=== PATIENT | male | born 1995 | race Hispanic/Latino ===

== ENCOUNTER 2019-05-19 09:24 | Emergency (ER) | payer SELFPAY ==
[2019-05-19] MEDS ORDERED: LIDOCAINE 1% MPF 5 ML VIAL ONE (10:42)
--- NOTE | 2019-05-19 10:53 | ER ---
Nurse's Notes [facility] Name: Aiden Hughes Age: 24 yrs Sex: Male : 1995 Arrival Date: 05/19/2019 Time: 09:29 Bed 26 Private MD: Diagnosis: Cutaneous abscess of abdominal wall Presentation: 05/19 09:51 Presenting complaint: Patient states: was having umbilical pain X 4 days, noticed a iw raised area inside belly button that has been draining pus. Transition of care: patient was not received from another setting of care. Onset of symptoms was May 16, 2019. Risk Assessment: Do you want to hurt yourself or someone else? Patient reports no desire to harm self or others. Initial Sepsis Screen: Does the patient meet any 2 criteria? No. Patient's initial sepsis screen is negative. Does the patient have a suspected source of infection? No. Patient's initial sepsis screen is negative. Care prior to arrival: None. 09:51 Method Of Arrival: Ambulatory iw 09:51 Acuity: GABRIELLA 4 iw 09:55 Acuity: GABRIELLA 3 iw Historical: - Allergies: 09:54 No Known Allergies; iw - Home Meds: 09:54 None [Active]; iw - PMHx: 09:54 None; iw - PSHx: 09:54 None; iw - Immunization history:: Adult Immunizations not up to date. - Social history:: Smoking status: Patient/guardian denies using tobacco. - Ebola Screening: : Patient negative for fever greater than or equal to 101.5 degrees Fahrenheit, and additional compatible Ebola Virus Disease symptoms Patient denies exposure to infectious person Patient denies travel to an Ebola-affected area in the 21 days before illness onset No symptoms or risks identified at this time. Screenin:20 Abuse screen: Denies threats or abuse. Nutritional screening: No deficits noted. em Tuberculosis screening: No symptoms or risk factors identified. Fall Risk None identified. Assessment: 10:20 General: Appears in no apparent distress. comfortable, Behavior is calm, cooperative, em Denies fever. Pain: Complains of pain in umbilical area Pain currently is 4 out of 10 on a pain scale. Neuro: Level of Consciousness is awake, alert, obeys commands, Oriented to person, place, time, situation, Appropriate for age. Cardiovascular: Capillary refill < 3 seconds Patient's skin is warm and dry. Respiratory: Airway is patent Respiratory effort is even, unlabored, Respiratory pattern is regular, symmetrical. GI: Abdomen is flat, Patient currently denies diarrhea, nausea, vomiting. Derm: Skin is intact, is healthy with good turgor, Skin is pink, warm \T\ dry. Wound noted umbilical area Wound is draining pus for about 3-4 days. Musculoskeletal: Capillary refill < 3 seconds, Range of motion: intact in all extremities. Vital Signs: 09:54 BP 124 / 86; Pulse 57; Resp 16 S; Temp 98.3; Pulse Ox 100% on R/A; Weight 72.57 kg; iw Height 5 ft. 7 in. (170.18 cm); Pain 0/10; 09:54 Body Mass Index 25.06 (72.57 kg, 170.18 cm) iw ED Course: 09:29 Patient arrived in ED. mr 09:30 Phi Lucero FNP-C [facility]. la1 09:30 Barrie Yeh MD is Attending Physician. la1 09:53 Triage completed. iw 09:54 Arm band placed on. iw 09:55 Chapis Mock, CATIA is Primary Nurse. iw 10:20 Patient has correct armband on for positive identification. Bed in low position. Call em light in reach. Adult w/ patient. Pulse ox on. NIBP on. 10:24 US Abdomen Limited In Process Unspecified. EDMS 11:15 No provider procedures requiring assistance completed. Patient did not have IV access em during this emergency room visit. Administered Medications: 10:47 Drug: Lidocaine (1 %) 5 mg {Note: administered by MARIA ELENA Yip.} Route: Infiltration; Site: em affected area; 10:55 Follow up: Response: No adverse reaction; Pain is decreased em Outcome: 10:51 Discharge ordered by . la1 11:15 Patient left the ED. iw 11:15 Discharged to home ambulatory, with family. em 11:15 Condition: good 11:15 Discharge instructions given to patient, family, Instructed on discharge instructions, follow up and referral plans. medication usage, wound care, Demonstrated understanding of instructions, follow-up care, medications, wound care, Prescriptions given X 1. Signatures: Dispatcher [employer] [facility] Liya Foster mr BneitezReilly, MAINTENANCE TEAM LEADER MAINTENANCE TEAM LEADERChapis Hyde, RN RN iw Phi Lucero, EXPEDITER SERVICE ORDER-C EXPEDITER SERVICE ORDER-Cla1
--- NOTE | 2019-05-19 10:53 | EDPHYS ---
Physician Documentation [facility] Name: Aiden Hughes Age: 24 yrs Sex: Male : 1995 Arrival Date: 05/19/2019 Time: 09:29 Bed 26 Private MD: ED Physician Barrie Yeh HPI: 05/19 10:00 This 24 yrs old Male presents to ER via Ambulatory with complaints of Hernia. la1 10:00 This 24 yrs old Male presents to ER via Ambulatory with complaints of la1 abdominal pain, ubilical p. 10:00 The patient presents with abdominal pain in the periumbilical area. Onset: The la1 symptoms/episode began/occurred 4 day(s) ago. The symptoms do not radiate. Associated signs and symptoms: Pertinent negatives: nausea, vomiting, and diarrhea, nausea and vomiting, blood in stools, constipation, diarrhea, dysuria, fever, headache, hematuria, nausea. The symptoms are described as sharp. Modifying factors: The symptoms are alleviated by nothing, the symptoms are aggravated by nothing. Severity of pain: At its worst the pain was mild. The patient has not experienced similar symptoms in the past. Pt reports that he has had what looks like an abscess in his umbilical area for the last four days. Historical: - Allergies: 09:54 No Known Allergies; iw - Home Meds: 09:54 None [Active]; iw - PMHx: 09:54 None; iw - PSHx: 09:54 None; iw - Immunization history:: Adult Immunizations not up to date. - Social history:: Smoking status: Patient/guardian denies using tobacco. - Ebola Screening: : Patient negative for fever greater than or equal to 101.5 degrees Fahrenheit, and additional compatible Ebola Virus Disease symptoms Patient denies exposure to infectious person Patient denies travel to an Ebola-affected area in the 21 days before illness onset No symptoms or risks identified at this time. ROS: 10:02 Constitutional: Negative for fever, chills, and weight loss, Eyes: Negative for injury, la1 pain, redness, and discharge, ENT: Negative for injury, pain, and discharge, Neck: Negative for injury, pain, and swelling, Cardiovascular: Negative for chest pain, palpitations, and edema, Respiratory: Negative for shortness of breath, cough, wheezing, and pleuritic chest pain. 10:02 Back: Negative for injury and pain, : Negative for injury, bleeding, discharge, and swelling, MS/Extremity: Negative for injury and deformity, Neuro: Negative for headache, weakness, numbness, tingling, and seizure. 10:02 Abdomen/GI: Positive for abdominal pain. Exam: 10:02 Constitutional: This is a well developed, well nourished patient who is awake, alert, la1 and in no acute distress. Head/Face: Normocephalic, atraumatic. Eyes: Pupils equal round and reactive to light, extra-ocular motions intact.Periorbital areas with no swelling, redness, or edema. ENT: Mucous membranes moist. Neck: . No Meningismus. Chest/axilla: Normal chest wall appearance and motion. Nontender with no deformity. No lesions are appreciated. Cardiovascular: Regular rate and rhythm with a normal S1 and S2. No gallops, murmurs, or rubs. Normal PMI, no JVD. No pulse deficits. Respiratory: Lungs have equal breath sounds bilaterally, clear to auscultation No rales, rhonchi or wheezes noted. No increased work of breathing, no retractions or nasal flaring. Back: No spinal tenderness. No costovertebral tenderness. Full range of motion. MS/ Extremity: Pulses equal, no cyanosis. Neurovascular intact. Full, normal range of motion. 10:02 Abdomen/GI: Inspection: apparent abscess in umbilicus, Bowel sounds: normal, Palpation: abdomen is soft and non-tender, in all quadrants, Indicators: McBurney's point is not tender, Garcia's sign is negative, Rovsing's sign is negative, Obturator sign is negative, Psoas sign is negative. Vital Signs: 09:54 BP 124 / 86; Pulse 57; Resp 16 S; Temp 98.3; Pulse Ox 100% on R/A; Weight 72.57 kg; iw Height 5 ft. 7 in. (170.18 cm); Pain 0/10; 09:54 Body Mass Index 25.06 (72.57 kg, 170.18 cm) iw Procedures: 10:50 I \T\ D: Incision and drainage was performed for an abscess of the umbilical area Prepped la1 with Betadine, Anesthetized with 1 ml's 1% Lidocaine. Incised with 18g needle. Drained small amount purulent fluid. bloody fluid. the patient tolerated the procedure well. MDM: 09:47 Patient medically screened. la1 10:51 Data reviewed: vital signs, nurses notes, radiologic studies, I have discussed the la1 patient's presentation/case with the attending Emergency Department Physician; and as a result, I will discharge patient. Data interpreted: Pulse oximetry: on room air is 100 %. Interpretation: normal. Counseling: I had a detailed discussion with the patient and/or guardian regarding: the historical points, exam findings, and any diagnostic results supporting the discharge/admit diagnosis, radiology results, the need for outpatient follow up, a family practitioner, to return to the emergency department if symptoms worsen or persist or if there are any questions or concerns that arise at home. Special discussion: Based on the patient's Hx, exam, and Dx evaluation, there is no indication for emergent surgery or inpatient Tx. It is understood by the patient/guardian that if the Sx's persist or worsen they need to return immediately for re-evaluation. I discussed in detail with the patient the higher chance of wound infection based on his presenting history. 05/19 09:59 Order name: Abdomen Limited; Complete Time: 11:09 la1 Administered Medications: 10:47 Drug: Lidocaine (1 %) 5 mg {Note: administered by MARIA ELENA Yip.} Route: Infiltration; Site: em affected area; 10:55 Follow up: Response: No adverse reaction; Pain is decreased em Disposition: 11:31 Co-signature as Attending Physician, Barrie Yeh MD I agree with the assessment and kdr plan of care. Disposition: 05/19/19 10:51 Discharged to Home. Impression: Cutaneous abscess of abdominal wall. - Condition is Stable. - Discharge Instructions: Skin Abscess, Incision and Drainage, Skin Abscess, [id number], Incision and Drainage, Care After. - Prescriptions for Bactrim DS 800- 160 mg Oral Tablet - take 1 tablet by ORAL route every 12 hours for 10 days; 20 tablet. - Work release form, Medication Reconciliation Form, Thank You Letter, Antibiotic Education form. - Follow up: Private Physician; When: 2 - 3 days; Reason: Recheck today's complaints, Re-evaluation by your physician. - Problem is new. - Symptoms have improved. Signatures: Dispatcher [employer] EDMS Barrie Yeh MD MD kdr Munoz, Edgar, LAVATORY ATTENDANT LAVATORY ATTENDANT em Chapis Mock, RN RN iw Phi Lcuero, COMMERCIAL HELICOPTER PILOT-C COMMERCIAL HELICOPTER PILOT-Cla1 Corrections: (The following items were deleted from the chart) 11:15 10:51 05/19/2019 10:51 Discharged to Home. Impression: Cutaneous abscess of abdominal iw wall. Condition is Stable. Forms are Medication Reconciliation Form, Thank You Letter, Antibiotic Education, Prescription Opioid Use. Follow up: Private Physician; When: 2 - 3 days; Reason: Recheck today's complaints, Re-evaluation by your physician. Problem is new. Symptoms have improved. la1
--- NOTE | 2019-05-19 11:01 | RAD REPORT ---
EXAM DESCRIPTION: US - Abdomen Exam Limited - 05/19/2019 10:23 am CLINICAL HISTORY: Abdominal mass COMPARISON: None. FINDINGS: Patient has a palpable area within the periumbilical region superficially. Ultrasound demonstrates a 12 millimeter fluid collection consistent with abscess IMPRESSION: 12 millimeter periumbilical abscess
[2019-05-19 11:34] VITALS: BP 124/86; TEMP 98.3; O2SAT 100
== END 2019-05-19 11:15 | disposition home or self-care (01) ==
LOC: ER 09:24
PROC: 0H97XZZ Drainage of Abdomen Skin, External Approach (ICD-10-PCS; principal; 2019-05-19)
DX: L02.211 Cutaneous abscess of abdominal wall (principal)
CPT/HCPCS: 76705; 99284

== ENCOUNTER 2019-08-11 09:58 | Emergency (ER) | payer SELFPAY ==
--- NOTE | 2019-08-11 10:55 | ER ---
Nurse's Notes [facility] Name: Aiden Hughes Age: 24 yrs Sex: Male : 1995 Arrival Date: 08/11/2019 Time: 10:03 Bed 19 Private MD: Diagnosis: Headache;Acute pharyngitis Presentation: 08/10 10:09 Chief complaint: Patient states: headache x 10 days. Coronavirus screen: Patient denies ss fever greater than 100.4F, cough, shortness of breath, or difficulty breathing. Proceed with normal triage process. Ebola Screen: Patient denies exposure to infectious person. Patient denies travel to an Ebola-affected area in the 21 days before illness onset. Initial Sepsis Screen: Does the patient meet any 2 criteria? No. Patient's initial sepsis screen is negative. Does the patient have a suspected source of infection? No. Patient's initial sepsis screen is negative. Risk Assessment: Do you want to hurt yourself or someone else? Patient reports no desire to harm self or others. 10:09 Method Of Arrival: Ambulatory ss 10:09 Acuity: GABRIELLA 4 ss 10:10 Onset of symptoms was August 08, 2019. ae4 Triage Assessment: 10:10 Headache History: The patient has had previous headaches and this one is similar to ae4 previous episodes. General: Appears in no apparent distress. Behavior is calm, cooperative. Pain: Pain currently is 6 out of 10 on a pain scale. Pain began gradually, 2-3 days ago. Also complains of Nasal congestion. EENT: Reports nasal congestion nasal discharge. Neuro: Level of Consciousness is awake, alert, obeys commands, Oriented to person, place, time, situation, Appropriate for age. Cardiovascular: Patient's skin is warm and dry. Respiratory: Airway is patent Denies cough, shortness of breath. GI: No signs and/or symptoms were reported involving the gastrointestinal system. : No signs and/or symptoms were reported regarding the genitourinary system. Derm: Skin is normal. Musculoskeletal: No signs and/or symptoms reported regarding the musculoskeletal system. Historical: - Allergies: 10:10 No Known Allergies; ss - Home Meds: 10:10 None [Active]; ss - PMHx: 10:10 None; ss - PSHx: 10:10 None; ss - Immunization history:: Adult Immunizations up to date. - Social history:: Smoking status: Patient denies any tobacco usage or history of. Screenin:07 Abuse screen: Denies threats or abuse. Denies injuries from another. Nutritional ae4 screening: No deficits noted. Tuberculosis screening: No symptoms or risk factors identified. Fall Risk None identified. Assessment: 10:10 Reassessment: See full triage assessment. ae4 10:10 Reassessment: No changes from previously documented assessment. Patient and/or family ae4 updated on plan of care and expected duration. Pain level reassessed. Vital Signs: 10:09 BP 117 / 86; Pulse 55; Resp 14; Temp 98.7(TE); Pulse Ox 98% on R/A; Weight 72.57 kg; ss Height 5 ft. 6 in. (167.64 cm); Pain 5/10; 11:07 Pulse 63; ae4 10:09 Body Mass Index 25.82 (72.57 kg, 167.64 cm) ED Course: 10:03 Patient arrived in ED. am2 10:10 Triage completed. ss 10:10 Arm band placed on left wrist. ss 10:10 Bed in low position. Call light in reach. Side rails up X 1. Pulse ox on. ae4 10:14 Danielle Cunningham [facility]NP-C [facility]. snw 10:14 Barrie Yeh MD is Attending Physician. snw 10:16 Abdifatah Shannon, CATIA is Primary Nurse. ae4 11:15 No provider procedures requiring assistance completed. Patient did not have IV access ae4 during this emergency room visit. Administered Medications: 11:02 Drug: ZyrTEC - Cetirizine 10 mg Route: PO; ae4 11:06 Follow up: Response: Medication administered at discharge. ae4 11:03 Drug: Zithromax 500 mg Route: PO; ae4 11:06 Follow up: Response: Medication administered at discharge. ae4 Outcome: 10:54 Discharge ordered by . snw 11:10 Patient left the ED. ae4 11:15 Discharged to home ambulatory. ae4 11:15 Condition: stable 11:15 Discharge instructions given to patient, Instructed on discharge instructions, follow up and referral plans. medication usage, Demonstrated understanding of instructions, Prescriptions given X 2. Signatures: Danielle Cunningham FNP-C SUPERVISOR BENZENE REFINING-Csnw Jennyfer Whitmore, RN RN ss Julianne Vásquez am2 Abdifatah Shannon, RN RN ae4
--- NOTE | 2019-08-11 10:55 | EDPHYS ---
Physician Documentation [facility] Name: Aiden Hughes Age: 24 yrs Sex: Male : 1995 Arrival Date: 08/11/2019 Time: 10:03 Bed 19 Private MD: ED Physician Barrie Yeh HPI: 08/10 11:03 This 24 yrs old Male presents to ER via Ambulatory with complaints of Headache.snw 11:03 The patient complains of pain to the forehead, right mandaen and left mandaen. The snw patient describes the headache as a pressure. Onset: The symptoms/episode began/occurred gradually, 10 day(s) ago, and became persistent. Severity of symptoms: At its worst the pain was mild, moderate, in the emergency department the pain is unchanged. Headache History: The patient has had previous headaches and this one is similar to previous episodes. The symptoms are alleviated by nothing. The patient has experienced a previous episode. The patient has not recently seen a physician. Historical: - Allergies: 10:10 No Known Allergies; ss - Home Meds: 10:10 None [Active]; ss - PMHx: 10:10 None; ss - PSHx: 10:10 None; ss - Immunization history:: Adult Immunizations up to date. - Social history:: Smoking status: Patient denies any tobacco usage or history of. ROS: 11:01 Constitutional: Negative for fever, chills, and weight loss, Eyes: Negative for injury, snw pain, redness, and discharge, ENT: Negative for injury, pain, and discharge, Neck: Negative for injury, pain, and swelling, Cardiovascular: Negative for chest pain, palpitations, and edema, Respiratory: Negative for shortness of breath, cough, wheezing, and pleuritic chest pain, Abdomen/GI: Negative for abdominal pain, nausea, vomiting, diarrhea, and constipation, Back: Negative for injury and pain, : Negative for injury, bleeding, discharge, and swelling, MS/Extremity: Negative for injury and deformity, Skin: Negative for injury, rash, and discoloration. 11:01 Neuro: Positive for headache, of the forehead, right mandaen and left mandaen. Exam: 11:01 Constitutional: This is a well developed, well nourished patient who is awake, alert, snw and in no acute distress. Head/Face: Normocephalic, atraumatic. Eyes: Pupils equal round and reactive to light, extra-ocular motions intact. Lids and lashes normal. Conjunctiva and sclera are non-icteric and not injected. Cornea within normal limits. Periorbital areas with no swelling, redness, or edema. ENT: Nares patent. No nasal discharge, no septal abnormalities noted. Tympanic membrane erythematous to left and normal to right and external auditory canals are clear. Oropharynx with redness, no swelling, or masses, exudates, or evidence of obstruction, uvula midline. Mucous membranes moist. Neck: Trachea midline, no thyromegaly or masses palpated, and no cervical lymphadenopathy. Supple, full range of motion without nuchal rigidity, or vertebral point tenderness. No Meningismus. Chest/axilla: Normal chest wall appearance and motion. Nontender with no deformity. No lesions are appreciated. Cardiovascular: Regular rate and rhythm with a normal S1 and S2. No gallops, murmurs, or rubs. Normal PMI, no JVD. No pulse deficits. Respiratory: Lungs have equal breath sounds bilaterally, clear to auscultation and percussion. No rales, rhonchi or wheezes noted. No increased work of breathing, no retractions or nasal flaring. Abdomen/GI: Soft, non-tender, with normal bowel sounds. No distension or tympany. No guarding or rebound. No evidence of tenderness throughout. Back: No spinal tenderness. No costovertebral tenderness. Full range of motion. Skin: Warm, dry with normal turgor. Normal color with no rashes, no lesions, and no evidence of cellulitis. MS/ Extremity: Pulses equal, no cyanosis. Neurovascular intact. Full, normal range of motion. Neuro: Awake and alert, GCS 15, oriented to person, place, time, and situation. Cranial nerves II-XII grossly intact. Motor strength 5/5 in all extremities. Sensory grossly intact. Cerebellar exam normal. Normal gait. Psych: Awake, alert, with orientation to person, place and time. Behavior, mood, and affect are within normal limits. Vital Signs: 10:09 BP 117 / 86; Pulse 55; Resp 14; Temp 98.7(TE); Pulse Ox 98% on R/A; Weight 72.57 kg; ss Height 5 ft. 6 in. (167.64 cm); Pain 5/10; 11:07 Pulse 63; ae4 10:09 Body Mass Index 25.82 (72.57 kg, 167.64 cm) ss MDM: 10:14 Patient medically screened. snw 10:55 Data reviewed: vital signs, nurses notes. Data interpreted: Pulse oximetry: on room air snw is 98 %. Interpretation: normal. Counseling: I had a detailed discussion with the patient and/or guardian regarding: the historical points, exam findings, and any diagnostic results supporting the discharge/admit diagnosis, the presence of at least one elevated blood pressure reading (>120/80) during this emergency department visit, the need for outpatient follow up, to return to the emergency department if symptoms worsen or persist or if there are any questions or concerns that arise at home. Special discussion: I have referred the patient to see his PCP for further evaluation of high blood pressure. Based on the history and exam findings, there is no indication for further emergent testing or inpatient evaluation. I discussed with the patient/guardian the need to see the primary care provider for further evaluation of the symptoms. Administered Medications: 11:02 Drug: ZyrTEC - Cetirizine 10 mg Route: PO; ae4 11:06 Follow up: Response: Medication administered at discharge. ae4 11:03 Drug: Zithromax 500 mg Route: PO; ae4 11:06 Follow up: Response: Medication administered at discharge. ae4 Disposition: 18:39 Co-signature as Attending Physician, Barrie Yeh MD I agree with the assessment and kdr plan of care. Disposition: 08/11/19 10:54 Discharged to Home. Impression: Headache, Acute pharyngitis. - Condition is Stable. - Discharge Instructions: General Headache Without Cause, Pharyngitis, Rehydration, Adult. - Prescriptions for Zyrtec 10 mg Oral Tablet - take 1 tablet by ORAL route once daily As needed; 20 tablet. Zithromax 500 mg Oral Tablet - take 1 tablet by ORAL route once daily for 5 days; 5 tablet. - Work release form, Medication Reconciliation Form, Thank You Letter, Antibiotic Education, Prescription Opioid Use form. - Follow up: Emergency Department; When: As needed; Reason: Worsening of condition. Follow up: Private Physician; When: 1 - 2 days; Reason: Recheck today's complaints, Continuance of care, Re-evaluation by your physician. Signatures: Barrie Yeh MD MD [facility] Danielle Cunningham, ULTIMATE HOOPS REFEREE-C ULTIMATE HOOPS REFEREE-Csnw Jennyfer Whitmore, CATIA RN ss Abdifatah Shannon RN RN ae4 Corrections: (The following items were deleted from the chart) 11:10 10:54 08/11/2019 10:54 Discharged to Home. Impression: Headache; Acute pharyngitis. ae4 Condition is Stable. Forms are Medication Reconciliation Form, Thank You Letter, Antibiotic Education, Prescription Opioid Use. Follow up: Emergency Department; When: As needed; Reason: Worsening of condition. Follow up: Private Physician; When: 1 - 2 days; Reason: Recheck today's complaints, Continuance of care, Re-evaluation by your physician. snw
[2019-08-11] MEDS ORDERED: AZITHROMYCIN 250 MG TAB ONE (11:02)
[2019-08-11] MEDS ORDERED: CETIRIZINE HCL 5 MG TABLET ONE (11:02)
[2019-08-11 11:19] VITALS: BP 117/86; TEMP 98.7; O2SAT 98
== END 2019-08-11 11:10 | disposition home or self-care (01) ==
LOC: ER 09:58
DX: J02.9 Acute pharyngitis, unspecified (principal)
CPT/HCPCS: 99283